=== PATIENT | female | born 1945 | race Caucasian/White ===

== ENCOUNTER → 2019-08-19 16:12 | Outpatient (CLI) | payer MEDICARE, SELFPAY ==
--- NOTE | ~2019-08-19 | MM_ITS ---
EXAMINATION: MM screening diane BI w addis HISTORY: Screening mammogram TECHNIQUE: Craniocaudal and mediolateral oblique 3-D tomosynthesis images were obtained and synthetic 2-D images were generated. CAD analysis was submitted and interpreted. COMPARISON: 08/08/2018, 05/23/2017, 08/05/2014 bilateral digital screening mammogram examinations BREAST PARENCHYMAL COMPOSITION: The breasts are almost entirely fatty. FINDINGS: There is no evidence of suspicious mass, calcification, or architectural distortion to sugg est malignancy in either breast. There has been no suspicious interval change. IMPRESSION: 1. No mammographic evidence of malignancy. 2. Recommend routine screening mammography in one year. BI-RADS Category 1: Negative Reviewed, dictated and finalized at location A. D [employer]
== END ==
PROVIDERS: PCP Family Medicine; Visit Provider Physician Assistant
DX: Z12.31 Encounter for screening mammogram for malignant neoplasm of breast (principal)
CPT/HCPCS: 77063; 77067

== ENCOUNTER → 2020-11-23 09:57 | Outpatient (CLI) | payer MEDICARE, SELFPAY ==
--- NOTE | ~2020-11-23 | XR_ITS ---
XR knee RT min 4V DATE: 11/23/2020 10:59 INDICATION: Right knee pain TECHNIQUE: 4 views COMPARISON: None FINDINGS: Diffuse osteopenia. There is severe joint space narrowing and prominent particular spurring at the lateral compartment. T here is particular spurring at the patellofemoral joint as well. There is minimal suprapatellar knee joint effusion. No fracture, dislocation, periosteal reaction or bone destruction, radiopaque intra-articular loose b aniyah or chondrocalcinosis is evident. 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 IMPRESSION: Osteoarthritis at the patellofemoral and particularly lateral sharif rtment Small suprapatellar knee joint effusion Osteopenia
== END ==
PROVIDERS: PCP Family Medicine; Visit Provider Family Medicine
DX: M17.11 Unilateral primary osteoarthritis, right knee (principal)
CPT/HCPCS: 73564

== ENCOUNTER → 2020-12-01 10:58 | Outpatient (CLI) | payer MEDICARE, SELFPAY ==
--- NOTE | ~2020-12-01 | DEXA_ITS ---
Bone Density Report Name: Margaret Wu Age: 75 Sex: Female Ethnicity: White Date of : 1945 Indication: osteopenia; height loss; hysterectomy; postmenopausal Referring Provider: Amaya Henriquez Study: Bone densitometry was performed. Exam Date: December 01, 2020 Accession number: [id number] Bone Density: Region BMD T-score Z-score Classification AP Spine (L1-L4) 0.928 -1.1 1.3 Osteopenia Femoral Neck (Left) 0.629 -2.0 0.1 Osteopenia Total Hip (Left) 0.700 -2.0 -0.2 Osteopenia Femoral Neck (Right) 0.644 -1.8 0.2 Osteopenia Total Hip (Right) 0.682 -2.1 -0.4 Osteopenia Total Hip Mean 0.691 -2.1 -0.3 Osteopenia World Health Organization criteria for BMD impression classify patients as: Normal (T-score at or above -1.0), Osteopenia (T-score between -1.0 and -2.5), or Osteoporosis (T-score at or below -2.5). 10-year Fracture Risk(1): Major Osteoporotic Fracture 12% Hip Fracture 2.9% Reported Risk Factors: [place] (), Neck BMD=0.629, BMI=28.9 (1) FRAX(R) Version 3.08. Fracture probability calculated for an untreated patient. Fracture probability may be lower if the patient has received treatment. Previous Exams: Region Exam Age BMD T-score BMD Change BMD Change Date g/cm2 vs Baseline vs Previous AP Spine(L1-L4) 12/01/2020 75 0.928 -1.1 0.080* 0.025* 08/08/2018 73 0.904 -1.3 0.055* 0.021 07/25/2013 68 0.883 -1.5 0.034* 0.042* 03/30/2011 65 0.841 -1.9 -0.008 -0.008 12/03/2008 63 0.848 -1.8 Total Hip(Left) 12/01/2020 75 0.700 -2.0 0.024 0.033* 08/08/2018 73 0.666 -2.3 -0.010 -0.043* 07/25/2013 68 0.709 -1.9 0.033* 0.022 03/30/2011 65 0.687 -2.1 0.011 0.011 12/03/2008 63 0.676 -2.2 Total Hip(Right) 12/01/2020 75 0.682 -2.1 0.005 0.005 08/08/2018 73 0.677 -2.2 -0.001 -0.036* 07/25/2013 68 0.713 -1.9 0.035* 0.051* 03/30/2011 65 0.661 -2.3 -0.016 -0.016 12/03/2008 63 0.678 -2.2 *Denotes significance at 95% confidence level, LSC for AP Spine = 0.022 g/cm2, LSC for Total Hip = 0.027 g/cm2 Clinical Information Provided by Patient: Has used the following medications: Vitamin D, Calcium Has the following medical conditions: Hysterectomy Patient maximum height was 64 Menopause Age: 55 Drinks caffeinated bever
--- NOTE | ~2020-12-01 | MM_ITS ---
EXAMINATION: MM screening diane BI w addis HISTORY: Screening mammogram TECHNIQUE: Craniocaudal and mediolateral oblique 3-D tomosynthesis images were obtained and synthetic 2-D images were generated. CAD analysis was submitted and interpreted. COMPARISON: 08/19/2019, 08/08/2018, 05/23/2017 bilateral digital screening mammogram examinations BREAST PARENCHYMAL COMPOSITION: The breasts are almost entirely fatty. FINDINGS: There is no evidence of suspicious mass, calcification, or architectural distortion to sugg est malignancy in either breast. There has been no suspicious interval change. IMPRESSION: 1. No mammographic evidence of malignancy. 2. Recommend routine screening mammography in one year. BI-RADS Category 1: Negative Reviewed, dictated and finalized at location A.
== END ==
PROVIDERS: PCP Family Medicine; Visit Provider Physician Assistant
DX: Z12.31 Encounter for screening mammogram for malignant neoplasm of breast (principal); Z78.0 Asymptomatic menopausal state; M85.88 Other specified disorders of bone density and structure, other site; M85.852 Other specified disorders of bone density and structure, left thigh; M85.851 Other specified disorders of bone density and structure, right thigh
CPT/HCPCS: 77063; 77067; 77080

== ENCOUNTER → 2021-12-28 11:26 | Outpatient (CLI) | payer MEDICARE, SELFPAY ==
--- NOTE | ~2021-12-28 | MM_ITS ---
EXAMINATION: MM screening diane BI w addis HISTORY: Screening mammogram TECHNIQUE: Craniocaudal and mediolateral oblique 3-D tomosynthesis images were obtained and synthetic 2-D images were generated. CAD analysis was submitted and interpreted. COMPARISON: 12/01/2020, , 08/08/2018 bilateral screening mammogram examinations BREAST PARENCHYMAL COMPOSITION: The breasts are almost entirely fatty. FINDINGS: There is no evidence of suspicious mass, calcification, or architectural distortion to sugg est malignancy in either breast. There has been no suspicious interval change. IMPRESSION: 1. No mammographic evidence of malignancy. 2. Recommend routine screening mammography in one year. BI-RADS Category 1: Negative Reviewed, dictated and finalized at location A.
== END ==
PROVIDERS: PCP Family Medicine; Visit Provider Physician Assistant
DX: Z12.31 Encounter for screening mammogram for malignant neoplasm of breast (principal)
CPT/HCPCS: 77063; 77067

== ENCOUNTER → 2022-03-22 10:37 | Outpatient (CLI) | payer MEDICARE, SELFPAY ==
--- NOTE | ~2022-03-22 | XR_ITS ---
EXAMINATION: XR hip RT min 2V DATE: 03/22/2022 10:49 INDICATION: Right hip pain TECHNIQUE: Two views of right hip were obtained. COMPARISON: None. FINDINGS: Bone alignment is normal. There is no fracture. The soft tissues are unremarkable. IMPRESSION: 1. Unremarkable right hip radiographs. Reviewed, dictated and finalized at location B.
== END ==
PROVIDERS: PCP Family Medicine; Visit Provider Family Medicine
DX: M25.551 Pain in right hip (principal)
CPT/HCPCS: 73502

== ENCOUNTER → 2022-12-30 10:02 | Outpatient (CLI) | payer MEDICARE, SELFPAY ==
--- NOTE | ~2022-12-30 | DEXA_ITS ---
Bone Density Report Name: IKE SHAW Age: 77 Sex: Female Ethnicity: White Date of : 1945 Indication: osteopenia; hysterectomy; postmenopausal Referring Provider: Anastasiia Glasgow Study: Bone densitometry was performed. Exam Date: December 30, 2022 Accession number: [id number] Bone Density: Region BMD T-score Z-score Classification AP Spine (L1-L4) 0.943 -0.9 1.5 Normal Femoral Neck (Left) 0.599 -2.3 -0.1 Osteopenia Total Hip (Left) 0.678 -2.2 -0.3 Osteopenia Femoral Neck (Right) 0.589 -2.3 -0.2 Osteopenia Total Hip (Right) 0.632 -2.5 -0.7 Osteoporosis Total Hip Mean 0.655 -2.4 -0.5 Osteopenia World Health Organization criteria for BMD impression classify patients as: Normal (T-score at or above -1.0), Osteopenia (T-score between -1.0 and -2.5), or Osteoporosis (T-score at or below -2.5). 10-year Fracture Risk: FRAX not reported because: Some T-score for Spine Total or Hip Total or Femoral Neck at or below -2.5 Previous Exams: Region Exam Age BMD T-score BMD Change BMD Change Date g/cm2 vs Baseline vs Previous AP Spine(L1-L4) 12/30/2022 77 0.943 -0.9 0.094* 0.014 12/01/2020 75 0.928 -1.1 0.080* 0.025* 08/08/2018 73 0.904 -1.3 0.055* 0.021 07/25/2013 68 0.883 -1.5 0.034* 0.042* 03/30/2011 65 0.841 -1.9 -0.008 -0.008 12/03/2008 63 0.848 -1.8 Total Hip(Left) 12/30/2022 77 0.678 -2.2 0.002 -0.022 12/01/2020 75 0.700 -2.0 0.024 0.033* 08/08/2018 73 0.666 -2.3 -0.010 -0.043* 07/25/2013 68 0.709 -1.9 0.033* 0.022 03/30/2011 65 0.687 -2.1 0.011 0.011 12/03/2008 63 0.676 -2.2 Total Hip(Right) 12/30/2022 77 0.632 -2.5 -0.046* -0.050* 12/01/2020 75 0.682 -2.1 0.005 0.005 08/08/2018 73 0.677 -2.2 -0.001 -0.036* 07/25/2013 68 0.713 -1.9 0.035* 0.051* 03/30/2011 65 0.661 -2.3 -0.016 -0.016 12/03/2008 63 0.678 -2.2 *Denotes significance at 95% confidence level, LSC for AP Spine = 0.022 g/cm2, LSC for Total Hip = 0.027 g/cm2 Clinical Information Provided by Patient: Has used the following medications: Vitamin D, Calcium Has the following medical conditions: Hysterectomy Patient maximum height was 64 Menopause Age: 55 No regular weight bearing exercise Drinks caffe
--- NOTE | ~2022-12-30 | MM_ITS ---
EXAMINATION: MM screening diane BI w addis HISTORY: Screening mammogram TECHNIQUE: Craniocaudal and mediolateral oblique 3-D tomosynthesis images were obtained and synthetic 2-D images were generated. CAD analysis was submitted and interpreted. COMPARISON: 12/28/2021, 12/01/2020, 08/19/2019 bilateral screening mammogram examinations BREAST PARENCHYMAL COMPOSITION: There are scattered areas of fibroglandular density. FINDINGS: There is no evidence of suspicious mass, calcification, or architectural distortion to sugg est malignancy in either breast. There has been no suspicious interval change. IMPRESSION: 1. No mammographic evidence of malignancy. 2. Recommend routine screening mammography in one year. BI-RADS Category 1: Negative Reviewed, dictated and finalized at location A.
== END ==
PROVIDERS: PCP Family Medicine; Visit Provider Nurse Practitioner
DX: Z12.31 Encounter for screening mammogram for malignant neoplasm of breast (principal); Z78.0 Asymptomatic menopausal state; M85.852 Other specified disorders of bone density and structure, left thigh; M81.0 Age-related osteoporosis without current pathological fracture; M85.851 Other specified disorders of bone density and structure, right thigh
CPT/HCPCS: 77063; 77067; 77080

== ENCOUNTER 2023-08-23 09:36 | Outpatient (CLI) | payer MEDICARE, SELFPAY ==
[2023-08-23 11:25] LABS: Appearance Urine Cloudy (Clear); Bacteria Urine None Seen /hpf; Bilirubin Urine Negative (Negative); Blood Urine 3+ (Negative); Color Urine Yellow (Yellow); Glucose Urine UA Negative (Negative); Ketones Urine Negative (Negative); Leukocyte Esterase Ur 2+ LEU/UL (Negative); Nitrate Urine Negative (Negative); Non Pathogenic Casts 0-2; Protein Urine 2+ mg/dL (Negative); RBC Urine 51-100 /hpf (0-2); Specific Grav Ur 1.012 (1.001-1.035); Squamous Epithelial Cell Urine None seen /hpf (Few); WBC Urine >100 /hpf
[2023-08-23 11:41] LABS: Add Urine Microscopic? YES
== END 2023-08-23 09:37 | disposition home or self-care (01) ==
PROVIDERS: PCP Family Medicine; Visit Provider Nurse Practitioner
DX: E78.00 Pure hypercholesterolemia, unspecified (principal); E55.9 Vitamin D deficiency, unspecified; R30.0 Dysuria
CPT/HCPCS: 81001; 87077; 87086; 87186

== ENCOUNTER 2024-01-23 15:05 | Outpatient (CLI) | payer MEDICARE, SELFPAY ==
--- NOTE | ~2024-01-23 | MM_ITS ---
EXAMINATION: MM screening diane BI w addis HISTORY: Screening TECHNIQUE: Craniocaudal and mediolateral oblique 3-D tomosynthesis images were obtained and synthetic 2-D images were generated. CAD analysis was submitted and interpreted. COMPARISON: Comparison to multiple prior studies sequentially, with oldest reviewed study dated 12/01. BREAST PARENCHYMAL COMPOSITION: Not dense: There are scattered areas of fibroglandular density. FINDINGS: There is no evidence of suspicious mass, calcification, or architectural distortion to sugg est malignancy in either breast. There has been no suspicious interval change. IMPRESSION: 1. No mammographic evidence of malignancy. 2. Recommend routine screening mammography in one year. BI-RADS Category 1: Negative Reviewed, dictated and finalized at location B.
== END 2024-01-23 15:06 ==
LOC: MICIMG 15:06
PROVIDERS: PCP Family Medicine; Visit Provider Nurse Practitioner
DX: Z12.31 Encounter for screening mammogram for malignant neoplasm of breast (principal)
CPT/HCPCS: 77063; 77067

== ENCOUNTER 2024-03-05 10:21 | Outpatient (CLI) | payer MEDICARE, SELFPAY ==
--- NOTE | ~2024-03-05 | US_ITS ---
Abdominal Sonogram: Real-time sonographic imaging of the abdomen was performed. Clinical History: Abdominal pain Findings: The liver appears normal with no evidence of mass lesion or bile duct dilatation. Main por raf vein demonstrates normal direction of flow. The spleen is normal in size without evidence of foca l lesion. The gallbladder is well distended, and appears normal with no evidence of gallstone or wal l thickening. The common bile duct measures 4 mm. The visualized pancreas, aorta, and IVC are unrema rkable. The right kidney measures 9.2 cm in length and the left kidney measures 10.1 cm. There is n o hydronephrosis or renal calculus. Impression: Unremarkable abdominal ultrasound. Reviewed, dictated and finalized at location . Impression: Unremarkable abdominal ultrasound.
== END 2024-03-05 10:22 ==
LOC: GOSHIMG 10:25
PROVIDERS: PCP Family Medicine; Visit Provider Nurse Practitioner
DX: R10.9 Unspecified abdominal pain (principal)
CPT/HCPCS: 76700

== ENCOUNTER 2024-03-15 12:29 | Outpatient (CLI) | payer MEDICARE, SELFPAY ==
--- NOTE | ~2024-03-15 | CT_ITS ---
Non-contrast CT scan of the Abdomen and Pelvis Clinical indication: Chronic pain Technique: 2.5 mm axial scans were obtained through the abdomen and pelvis without intravenous or or al contrast. Dose reduction technique was used on this scan by utilizing automated exposure control a nd iterative reconstruction technique. The dose-length product (DLP) was 575.29 mGy-cm. Findings: Images through the lung bases reveal no abnormalities. There is no evidence of renal or ureteral calculi. The kidneys and the ureters are nondilated. The liver, spleen, pancreas, gallbladder, and adrenals appear normal. There is no aortic aneurysm. Suspected mild inflammatory change at the gastric antrum region. Consider peptic ulcer disease. No de finite free air evident. Images through the pelvis were performed. There is no evidence of ascites or lymphadenopathy. Urinary bladder unremarkable. No pelvic mass. No ascites. Impression: Probable mild inflammatory change about the gastric antrum. Correlate for gastritis or peptic ulnar d isease. No free air evident. Reviewed, dictated and finalized at location . Impression: Probable mild inflammatory change about the gastric antrum. Correlate for gastr itis or peptic ulnar disease. No free air evident.
== END 2024-03-15 12:30 | disposition home or self-care (01) ==
LOC: MICIMG 12:29
PROVIDERS: PCP Nurse Practitioner; Visit Provider Nurse Practitioner
DX: G89.29 Other chronic pain (principal); R10.9 Unspecified abdominal pain
CPT/HCPCS: 74176

== ENCOUNTER 2025-02-11 08:59 | Outpatient (CLI) | payer MEDICARE, SELFPAY ==
--- NOTE | ~2025-02-11 | DEXA_ITS ---
Bone Density Report Name: IKE SHAW Age: 79 Sex: Female Ethnicity: White Date of : 1945 Indication: postmenopausal; screening for osteoporosis; height loss; hysterectomy; Referring Provider: DASH MERRITT Study: Bone densitometry was performed. Exam Date: February 11, 2025 Accession number: [id number] Bone Density: Region BMD T-score Z-score Classification AP Spine(L1-L4) 1.004 -0.4 2.2 Normal Femoral Neck (Left) 0.564 -2.6 -0.3 Osteoporosis Total Hip (Left) 0.694 -2.0 -0.1 Osteopenia Femoral Neck (Right) 0.576 -2.5 -0.2 Osteoporosis Total Hip (Right) 0.671 -2.2 -0.2 Osteopenia Total Hip Mean 0.682 -2.1 -0.2 Osteopenia World Health Organization criteria for BMD impression classify patients as: Normal (T-score at or above -1.0), Osteopenia (T-score between -1.0 and -2.5), or Osteoporosis (T-score at or below -2.5). 10-year Fracture Risk: FRAX not reported because: Some T-score for Spine Total or Hip Total or Femoral Neck at or below -2.5 Treated for osteoporosis Clinical Information Provided by Patient: Is being treated for osteoporosis Has used the following medications: Fosamax (i.e. alendronate) Has the following medical conditions: Hysterectomy Patient maximum height was 64 Menopause Age: 54 No regular weight bearing exercise Onset of menses at age 14 Number of children 3 Impression: The patient has osteoporosis, based on the Left Femoral Neck T-score. Discussion: It is important to ask patients whether they are taking their medications and to encourage continued and appropriate compliance with their osteoporosis therapies to reduce fracture risk. It is also important to review their risk factors and encourage appropriate calcium and vitamin D intakes, exercise, fall prevention and other lifestyle measures. Follow-Up: Consider a repeat BMD and Vertebral Fracture Assessment (VFA) exam in 2 years or sooner if medically necessary, to reassess this patient's status. Reported by: CHAVO on 02/11/2025 9:41:00 AM. Reviewed, dictated and finalized at location A.
--- NOTE | ~2025-02-11 | MM_ITS ---
EXAMINATION: MM screening diane BI w addis HISTORY: Screening TECHNIQUE: Craniocaudal and mediolateral oblique 3-D tomosynthesis images were obtained and synthetic 2-D images were generated. CAD analysis was submitted and interpreted. COMPARISON: Comparison to multiple prior studies sequentially, with oldest reviewed study dated 08/08. BREAST PARENCHYMAL COMPOSITION: There are scattered areas of fibroglandular density. FINDINGS: There is no evidence of suspicious mass, calcification, or architectural distortion to sug gest malignancy in either breast. IMPRESSION: 1. No mammographic evidence of malignancy. 2. Recommend routine screening mammography in one year. BI-RADS Category 1: Negative Reviewed, dictated and finalized at location B.
== END 2025-02-11 09:00 | disposition home or self-care (01) ==
LOC: ANHIMG 09:05
PROVIDERS: PCP Family Medicine; Visit Provider Nurse Practitioner
DX: Z12.31 Encounter for screening mammogram for malignant neoplasm of breast (principal); M85.88 Other specified disorders of bone density and structure, other site; M81.0 Age-related osteoporosis without current pathological fracture; M85.852 Other specified disorders of bone density and structure, left thigh; M85.851 Other specified disorders of bone density and structure, right thigh
CPT/HCPCS: 77063; 77067; 77080